=== PATIENT | female | born 1990 | race Caucasian/White ===

== ENCOUNTER 2019-06-13 02:39 | Emergency (ER) | payer BC, SELFPAY ==
--- NOTE | ~2019-06-13 | XR_ITS ---
EXAMINATION: XR chest 2V DATE: 06/13/2019 04:25 INDICATION: Dyspnea. Asthma. TECHNIQUE: PA and lateral views of the chest were obtained. COMPARISON: Chest CT dated 08/27/2017 FINDINGS: Normal lung volumes. No focal airspace opacities, pulmonary edema, pleural effusion or pneumothorax. The cardiomediastinal silhouette is normal. C5-C7 anterior spinal fusion with anterior plate and scre w fixation. IMPRESSION: 1. No acute cardiopulmonary disease. Reviewed, dictated and finalized at location A. LINE WORKER
[2019-06-13 02:41] VITALS: BP 133/89; PULSE 120; RESP 20; TEMP 36.5; O2SAT 100
--- NOTE | 2019-06-13 02:46 | ED.SOB ---
HPI - SOB/Dyspnea General Chief Complaint: Shortness of Breath/Dyspnea Stated Complaint: sob Time Seen by Provider: 06/13/19 02:46 Source: patient and RN notes reviewed Mode of arrival: other Limitations: no limitations History of Present Illness HPI Narrative: Pt is a 29 y/o female who presents to the ED with c/o SOB that began two days ago (06/11/19). Pt has a hx of anxiety and asthma. Pt states that she cannot seem to catch her breath. Pt took Flovent and used her Albuterol rescue inhaler, but with no relief of her sx. Pt is currently taking Cipro for her UTI. She notes that she feels dizzy whenever she breathes and she states that she is afraid to fall asleep. Pt denies any recent travel, heavy lifting, smoking, using a vape, and taking oral contraceptives. Pt denies being and she notes that she has not been sexually active in over two months. Pt also reports chest tightness pain, diaphoresis, and near syncope, but denies a fever, cough, and congestion. MD elicited complaint: shortness of breath Pertinent past history: asthma Onset (ago): day(s) (2) Timing: constant Relieving factors: nothing Known history of: asthma Associated symptoms: chest pain (tightness), diaphoresis, syncope (near) and other (dizziness) Treatment prior to arrival: other (Albuterol rescue inhaler) Related Data Home oxygen amount: none Allergies Allergy/AdvReac Type Severity Reaction Status Date / Time acetaminophen Allergy Unknown Unknown Verified 06/13/19 02:43 hydrocodone Allergy Unknown Unknown Verified 06/13/19 02:43 latex Allergy Unknown Unknown Verified 06/13/19 02:43 morphine Allergy Unknown Other Verified 06/13/19 02:43 pneumococcal vaccine Allergy Unknown Unknown Verified 06/13/19 02:43 Review of Systems Review of Systems: Narrative: CONSTITUTIONAL: Denies fever. ENT: Denies congestion. CARDIOVASCULAR: Reports chest tightness pain and diaphoresis. RESPIRATORY: Reports dyspnea. Denies cough. NEUROLOGIC: Reports near syncope and dizziness. All systems reviewed & are unremarkable except as noted in HPI and below PMFSH Past Medical History Medical History (Updated 06/13/19 @ 04:44 by Graciela Trujillo MD) Anxiety Asthma Depression DVT (deep venous thrombosis) Migraines, neuralgic Shingles UTI (urinary tract infection) Vertigo Surgical History Surgical History (Updated 06/13/19 @ 02:54 by Saira Bailey) H/O spinal fusion Family History Family History (Updated 12/02/17 @ 13:36 by DOCTOR UNKNOWN) Other Family history of arthritis Social History Social History (Updated 06/13/19 @ 03:00 by Saira Bailey) Smoking status: Never smoker Alcohol intake: current Gender identity (if verbalized by the patient): Female Exam Narrative: Exam Narrative: GENERAL: Well-appearing, well-nourished, and in no acute distress. Anxious and tremolous. HEAD: Normocephalic, atraumatic. EYES: PERRLA and EOMI. ENT: Nares clear, no rhinorrhea or epistaxis. Mucous membranes moist. NECK: Supple. CHEST: Coarse breath sounds, faint expiratory wheezing bilateral bases. No chest wall tenderness. HEART: Tachycardic with rhythm. No murmur heard. Normal peripheral pulses. ABDOMEN: Soft, nontender, nondistended, normal active bowel sounds. EXTREMITIES: Normal range of motion. No edema. SKIN: Warm, dry, no rash. NEURO: No focal deficits. Alert and oriented X3. Course Course Emergency Course: Patient evaluated for shortness of breath. At the time of initial assessment, ABCs are intact and vital signs are stable. She does have tachycardia, she is reporting chest pain, EKG with right axis deviation, but low risk Via Wells criteria for PE. Cannot use PERC criteria given patient's tachycardia. Patient was given a DuoNeb treatment, steroids with much improvement in her symptoms. Her troponin is normal. Given she has had symptoms over the past 2 days, I would suspect a troponin elevation if this were due to cardiac chest pain. Patient has a histo
--- NOTE | 2019-06-13 02:51 | ECG_ITS ---
Measurements Intervals [place] Rate: 98 P: 20 [place]: 145 QRS: 104 QRSD: 90 T: -17 QT: 324 QTc: 415 Interpretive Statements SINUS RHYTHM RIGHT AXIS DEVIATION BORDERLINE ST-T WAVE ABNORMALITY- INF/LAT LEADS BORDERLINE ECG Electronically Signed On 06-13-2019 7:14:29 SUPERINTENDENT OF GENERATION by Geraldo Iqbal D.O.
[2019-06-13 03:07] VITALS: PULSE 96; RESP 22
[2019-06-13] MEDS: IPRATROPIUM BR 0.02% INH SOLN 0.5 MG/2.5 ML VIAL INHALATION (03:09)
[2019-06-13] MEDS: ALBUTEROL SULFATE NEB 2.5 MG/0.5 ML INH 5 MG INHALATION (03:09)
[2019-06-13] MEDS: methylPREDNISolone SOD SUCC 125 MG VIAL IV PUSH (03:12)
[2019-06-13] MEDS: SODIUM CHLORIDE 0.9% IV 1,000 ML 999 ML IV CONT (03:13)
[2019-06-13 03:16] LABS: Basophils Absolute Auto 0.1 K/mm3 (0.0-0.1); Basophils Percent Auto 0.6 % (0.2-1.2); Eosinophils Absolute Auto 0.1 K/mm3 (0-0.3); Eosinophils Percent Auto 1.3 % (0-4.4); Hematocrit 46.8 % (37.0-47.0); Hemoglobin 15.4 g/dL (12.0-15.0); Immature Granulocyte Absolute 0.02 K/mm3 (0.00-0.031); Immature Granulocyte Percent A 0.3 % (0-0.5); Lymphocytes Absolute Auto 3.66 K/mm3 (0.9-3.2); Lymphocytes Percent Auto 46.3 % (18.3-44.2); Mean Corpuscular HGB Conc 32.9 g/dl (32-36); Mean Corpuscular Hemoglobin 28.6 pg (26-34); Mean Platelet Volume 10.4 fl (7.4-10.4); Monocytes Absolute Auto 0.4 K/mm3 (0.1-0.6); Monocytes Percent Auto 4.7 % (2.6-8.5); Neutrophils Absolute Auto 3.7 K/mm3 (1.3-6.7); Neutrophils Percent Auto 46.8 % (45.5-73.1); Platelet Count Result 269 k/mm3 (150-375); Red Blood Count 5.38 M/mm3 (4.2-5.4); Red Cell Distribution Width 12.3 % (11.5-14.5); White Blood Count 7.9 K/mm3 (4.5-10.0)
[2019-06-13] MEDS: KETOROLAC 15 MG/ML VIAL (*BKC) IV PUSH (03:16)
[2019-06-13 03:19] VITALS: PULSE 100; RESP 24
[2019-06-13 04:01] LABS: Blood Urea Nitrogen 11 mg/dL (7-17); Calcium 9.4 mg/dL (8.4-10.2); Carbon Dioxide 17 mmol/L (22-30); Chloride 104 mmol/L (98-107); Estimated Glomerular Filt Rate > 60; Glucose 107 mg/dL (65-105); Potassium 3.1 mmol/L (3.4-5.0); Sodium 139 mmol/L (137-145)
[2019-06-13 04:13] LABS: Troponin I < 0.012 ng/mL (0.000-0.034)
[2019-06-13 04:16] LABS: D Dimer 0.42 ug/mL (<0.48)
[2019-06-13 04:17] LABS: INR 1.1; Prothrombin Time 13.9 Seconds (11.1-14.7)
[2019-06-13 04:39] LABS: Partial Thromboplastin Time < 20.0 SECONDS (22.3-36.8)
[2019-06-13 05:03] VITALS: BP 114/75; PULSE 84; RESP 20; O2SAT 100
== END 2019-06-13 05:05 | disposition home or self-care (01) ==
PROVIDERS: Emergency Provider Emergency Medicine; PCP Obstetrics & Gynecology
DX: J45.901 Unspecified asthma with (acute) exacerbation (principal); F41.9 Anxiety disorder, unspecified; F32.9 Major depressive disorder, single episode, unspecified; Z87.440 Personal history of urinary (tract) infections
CPT/HCPCS: 36415; 71046; 80048; 84484; 85025; 85380; 85610; 85730; 93005; 94640; 96361; 96374; 96375; 99284; J1885; J2930; J7030

== ENCOUNTER 2019-06-22 10:43 | Emergency (ER) | payer BC, SELFPAY ==
[2019-06-22 10:53] VITALS: BP 114/71; PULSE 122; RESP 18; TEMP 36.9; O2SAT 100
--- NOTE | 2019-06-22 11:02 | ED.GENADULT ---
HPI - General Adult General Chief complaint: Upper Respiratory Infection Stated complaint: SOB/chest discomfort Time Seen by Provider: 06/22/19 11:04 Source: patient and RN notes reviewed Mode of arrival: ambulatory Limitations: no limitations History of Present Illness HPI narrative: This is a 29 years old female presented office for evaluation of shortness of breath since Jun 11; states she went to [place] [facility] for these symptoms and went back to [facility] the next day. Per patient, she reports slightly better when she was on three days of steroid; however her shortness of breathe persist. She had 2 chest x-ray with unremarkable finding. She understood she is supposed to see a human performance technologist for further evaluation and treatment of her lung condition however she is very symptomatic right now that she does not think she can wait another 2 weeks. Symptoms include short of breath at rest and worse with exertion. Denies wheezing or cough. She has been taking albuterol treatment and her Flovent. Denies sick contact. Admits to history of DVT however she is not currently on blood thinner. Denies history of PE in the past.She does not smoke. She denies recent surgery.She is not on any hormone medication. HPI - SOB/Dyspnea General Chief Complaint: Shortness of Breath/Dyspnea Stated Complaint: sob Time Seen by Provider: 06/13/19 02:46 Source: patient and RN notes reviewed Mode of arrival: other Limitations: no limitations History of Present Illness HPI Narrative: Pt is a 29 y/o female who presents to the ED with c/o SOB that began two days ago (06/11/19). Pt has a hx of anxiety and asthma. Pt states that she cannot seem to catch her breath. Pt took Flovent and used her Albuterol rescue inhaler, but with no relief of her sx. Pt is currently taking Cipro for her UTI. She notes that she feels dizzy whenever she breathes and she states that she is afraid to fall asleep. Pt denies any recent travel, heavy lifting, smoking, using a vape, and taking oral contraceptives. Pt denies being and she notes that she has not been sexually active in over two months. Pt also reports chest tightness pain, diaphoresis, and near syncope, but denies a fever, cough, and congestion. Related Data Home Medications Medication Instructions Recorded Confirmed alprazolam [Xanax] 0.5 mg PO BID PRN 06/22/19 06/22/19 escitalopram oxalate 10 mg PO DAILY 06/22/19 06/22/19 fluticasone propionate [Flovent 2 puff INHALATION Q12H 06/22/19 06/22/19 HFA] phentermine 37.5 mg PO DAILY 06/22/19 06/22/19 verapamil 40 mg PO BID 06/22/19 06/22/19 Allergies Allergy/AdvReac Type Severity Reaction Status Date / Time hydrocodone Allergy Unknown Itching Verified 06/22/19 11:00 latex Allergy Unknown Hives Verified 06/22/19 11:00 morphine Allergy Unknown Itching Verified 06/22/19 11:00 pneumococcal vaccine Allergy Unknown Other Verified 06/22/19 11:00 coconut Allergy Hives Verified 06/22/19 11:01 Review of Systems Review of Systems: Narrative: CONSTITUTIONAL: Denies fever or feeling ill ENT: Denies congestion or sore throat CARDIOVASCULAR: Denies chest pain RESPIRATORY: Denies cough or wheezing. Reports dyspnea GASTROINTESTINAL: Denies abdominal pain, nausea, vomiting, diarrhea. GENITOURINARY: Denies urinary symptoms or discharge SKIN: Denies rash MUSCULOSKELETAL: Denies acute back pain NEUROLOGIC: Denies lightheaded PMFSH Past Medical History Medical History Anxiety Asthma Depression DVT (deep venous thrombosis) Migraines, neuralgic Shingles UTI (urinary tract infection) Vertigo Surgical History Surgical History H/O spinal fusion Family History Family History Other Family history of arthritis Social History Social History Smoking status: N
[2019-06-22] MEDS: IPRATROPIUM BR 0.02% INH SOLN 0.5 MG/2.5 ML VIAL INHALATION (11:32)
[2019-06-22] MEDS: LEVALBUTEROL NEB 1.25 MG/3 ML INHALATION (11:32)
[2019-06-22 11:49] VITALS: PULSE 112; RESP 20; O2SAT 100
[2019-06-22 12:05] VITALS: O2SAT 100
== END 2019-06-22 12:05 | disposition short-term general hospital (02) ==
PROVIDERS: Emergency Provider Nurse Practitioner; PCP Obstetrics & Gynecology
DX: R06.02 Shortness of breath (principal); J45.20 Mild intermittent asthma, uncomplicated; F41.9 Anxiety disorder, unspecified; Z86.718 Personal history of other venous thrombosis and embolism
CPT/HCPCS: 94640; 99213; G0463

== ENCOUNTER 2019-06-22 12:30 | Emergency (ER) | payer BC, SELFPAY ==
--- NOTE | ~2019-06-22 | CT_ITS ---
EXAMINATION: CTA chest PE protocol EXAM DATE: 06/22/2019 14:16 INDICATION: History of DVT. Shortness of breath for 3 weeks. TECHNIQUE: Spiral CTA of the chest (pulmonary arteries) was performed with 100 cc Omnipaque 350 intr avenous contrast injection. Images were acquired during the pulmonary arterial phase. Coronal maxi mum intensity projection 3D-reconstructions were created by the technologist on dedicated workstation . Axial, coronal and sagittal reformatted images were reviewed. The dose-length product (DLP) for t his examination was 474.52 mGy-cm. The exposure was tailored according to patient size (auto mA exp osure control), and iterative reconstruction (ASIR) was used as additional dose reduction technique. Comparison is made to prior examination from 08/27/2017. FINDINGS: Pulmonary arteries are well opacified and without intraluminal filling defects. Dependent vague groundglass opacity, atelectasis most likely. No thoracic aortic dissection. There are no p leural or pericardial effusions. Tracheobronchial tree is patent. There is no mediastinal, hilar or axillary lymphadenopathy. There is no pneumothorax. Heart normal in size. No evidence of cor onary arterial calcification. Upper abdomen is unremarkable. There is thoracic spondylosis without osteoblastic or osteolytic lesions identified. IMPRESSION: 1. No pulmonary emboli. 2. Dependent groundglass opacity most likely atelectasis. Reviewed, dictated and finalized at location A. RVISOR SOLDER MAKING
--- NOTE | 2019-06-22 12:37 | ED.SOB ---
HPI - SOB/Dyspnea General Chief Complaint: Shortness of Breath/Dyspnea Stated Complaint: SOB, sent from Time Seen by Provider: 06/22/19 12:36 Source: patient and RN notes reviewed Mode of arrival: ambulatory Limitations: no limitations History of Present Illness HPI Narrative: A 29 y/o female presents to the ED from with worsening SOB for the past 3 weeks. She states that she has a hx of asthma but that it doesn't feel like a typical asthma flare up. She reports some associated mild CP. She notes that she has a hx of a DVT but denies being on any BT's at this time. She also denies any cough, wheezes, fevers, chills, N/V/D, or ABD pain. MD elicited complaint: shortness of breath Pertinent past history: asthma and DVT Onset (ago): week(s) (3) Timing: progressively worsening Known history of: asthma and DVT Associated symptoms: chest pain (mild) Related Data Home Medications Medication Instructions Recorded Confirmed alprazolam [Xanax] 0.5 mg PO BID PRN 06/22/19 06/22/19 escitalopram oxalate 10 mg PO DAILY 06/22/19 06/22/19 fluticasone propionate [Flovent 2 puff INHALATION Q12H 06/22/19 06/22/19 HFA] phentermine 37.5 mg PO DAILY 06/22/19 06/22/19 verapamil 40 mg PO BID 06/22/19 06/22/19 Allergies Allergy/AdvReac Type Severity Reaction Status Date / Time hydrocodone Allergy Unknown Itching Verified 06/22/19 13:20 latex Allergy Unknown Hives Verified 06/22/19 13:20 morphine Allergy Unknown Itching Verified 06/22/19 13:20 pneumococcal vaccine Allergy Unknown Other Verified 06/22/19 13:20 coconut Allergy Hives Verified 06/22/19 13:20 Review of Systems Review of Systems: All systems reviewed & are unremarkable except as noted in HPI and below Constitutional: Constitutional: Denies chills and Denies fever(s) Cardiovascular: Cardiovascular: Reports chest pain (mild) Respiratory: Respiratory: Denies cough, Reports dyspnea and Denies wheezing Gastrointestinal: Gastrointestinal: Denies abdominal pain, Denies diarrhea, Denies nausea and Denies vomiting COUNTS INCLUDE 234 BEDS AT THE [facility] Past Medical History Medical History Anxiety Asthma Depression DVT (deep venous thrombosis) Increasing shortness of breath Migraines, neuralgic Shingles UTI (urinary tract infection) Vertigo Surgical History Surgical History H/O spinal fusion x2. Family History Family History Other Family history of arthritis Social History Social History Smoking status: Never smoker Alcohol intake: current Gender identity (if verbalized by the patient): Female Exam Narrative: Exam Narrative: GENERAL: Well-appearing, well-nourished, and in no acute distress. HEAD: Normocephalic, atraumatic. EYES: PERRLA and EOMI. ENT: Nares clear, no rhinorrhea or epistaxis. Mucous membranes moist. NECK: Supple. CHEST: Clear to auscultation. No respiratory distress. HEART: Regular rate and rhythm. No murmur heard. Normal peripheral pulses. EXTREMITIES: Normal range of motion. No edema. SKIN: Warm, dry, no rash. NEURO: No focal deficits. Alert and oriented x3. PSYCH: Normal mood and affect. Course Course Emergency Course: Inform patient about her lab work, CT findings. At this time I do not see any evidence of pneumonia or blood clots. Her cause of shortness of breath could be either asthma or anxiety. Patient states that she has been using her inhalers. I recommended to follow-up with her primary doctor or pulmonology. At this time she is requesting prednisone. Vital Signs Vital signs: Vital Signs Temperature 36.7 C 06/22/19 13:14 Pulse Rate 100 06/22/19 13:14 Respiratory Rate 15 06/22/19 13:14 Blood Pressure 115/83 06/22/19 13:14 Pulse Oximetry 100 06/22/19 13:14 Temperature 36.9 C 06/22/19 13:25 Pulse Rate 100 06/22/19 13:14 Respiratory Rate 15
--- NOTE | 2019-06-22 12:45 | ECG_ITS ---
Measurements Intervals [place] Rate: 109 P: 17 [place]: 134 QRS: 81 QRSD: 85 T: -30 QT: 304 QTc: 410 Interpretive Statements SINUS TACHYCARDIA POSSIBLE LEFT ATRIAL ENLARGEMENT BORDERLINE ST-T WAVE ABNORMALITY- INFERIOR LEADS BASELINE ARTIFACT- I, III, V4-V6 ABNORMAL ECG Electronically Signed On 06-22-2019 15:42:36 TAG STRINGER by Geraldo Iqbal D.O.
--- NOTE | 2019-06-22 13:06 | PC.NURSE ---
Called Matilde Juan to start IV for this pt. aMtilde stated it will be around 30 min before she is able to get here. I informed Emily, my charge nurse
[2019-06-22 13:14] VITALS: BP 115/83; PULSE 100; RESP 15; TEMP 36.7; O2SAT 100
[2019-06-22 13:25] VITALS: TEMP 36.9
[2019-06-22 13:54] LABS: Basophils Absolute Auto 0.1 K/mm3 (0.0-0.1); Basophils Percent Auto 0.6 % (0.2-1.2); Eosinophils Absolute Auto 0.1 K/mm3 (0-0.3); Eosinophils Percent Auto 1.2 % (0-4.4); Hematocrit 48.1 % (37.0-47.0); Hemoglobin 16.3 g/dL (12.0-15.0); Immature Granulocyte Absolute 0.02 K/mm3 (0.00-0.031); Immature Granulocyte Percent A 0.2 % (0-0.5); Lymphocytes Absolute Auto 3.49 K/mm3 (0.9-3.2); Lymphocytes Percent Auto 37.3 % (18.3-44.2); Mean Corpuscular HGB Conc 33.9 g/dl (32-36); Mean Corpuscular Hemoglobin 29.1 pg (26-34); Mean Corpuscular Volume 85.7 fl (80-100); Mean Platelet Volume 10.2 fl (7.4-10.4); Monocytes Absolute Auto 0.5 K/mm3 (0.1-0.6); Monocytes Percent Auto 5.7 % (2.6-8.5); Neutrophils Absolute Auto 5.1 K/mm3 (1.3-6.7); Platelet Count Result 288 k/mm3 (150-375); Red Blood Count 5.61 M/mm3 (4.2-5.4); Red Cell Distribution Width 12.6 % (11.5-14.5); White Blood Count 9.4 K/mm3 (4.5-10.0)
[2019-06-22 14:04] LABS: Alanine Aminotransferase 26 U/L (4-35); Albumin Level 4.5 g/dL (3.5-5.1); Alkaline Phosphatase 57 U/L (38-126); Aspartate Amino Transferase 25 U/L (14-36); Bilirubin,Total 1.1 mg/dL (0.2-1.3); Blood Urea Nitrogen 8 mg/dL (7-17); Calcium 9.7 mg/dL (8.4-10.2); Carbon Dioxide 25 mmol/L (22-30); Chloride 99 mmol/L (98-107); Estimated CRCL calculation 80 ml/min; Estimated Glomerular Filt Rate > 60; Glucose 83 mg/dL (65-105); Potassium 3.4 mmol/L (3.4-5.0); Sodium 138 mmol/L (137-145)
[2019-06-22 14:16] LABS: D Dimer 0.27 ug/mL (<0.48)
== END 2019-06-22 15:16 | disposition home or self-care (01) ==
PROVIDERS: Emergency Provider Family Medicine; PCP Obstetrics & Gynecology
DX: R06.02 Shortness of breath (principal); Z86.718 Personal history of other venous thrombosis and embolism; J45.909 Unspecified asthma, uncomplicated; Z87.440 Personal history of urinary (tract) infections; Z98.1 Arthrodesis status
CPT/HCPCS: 36415; 71275; 80053; 81025; 85025; 85380; 93005; 99284; Q9967

== ENCOUNTER 2019-08-26 12:28 | Outpatient (CLI) | payer BC, SELFPAY ==
[2019-08-30 08:20] LABS: Immunoglobulin E 36 kU/L (<=114)
[2019-08-30 23:46] LABS: Immunoglobulin G, Serum 1000 mg/dL (600-1640); Immunoglobulin G1 395 mg/dL (382-929); Immunoglobulin G2 442 mg/dL (241-700); Immunoglobulin G3 34 mg/dL (22-178); Immunoglobulin G4 98.8 mg/dL (4.0-86.0)
== END 2019-08-26 12:29 | disposition home or self-care (01) ==
PROVIDERS: PCP Internal Medicine; Visit Provider Internal Medicine Critical Care Medicine
DX: J45.909 Unspecified asthma, uncomplicated (principal); B99.9 Unspecified infectious disease
CPT/HCPCS: 36415; 82784; 82785; 82787; 86606

== ENCOUNTER 2019-09-14 09:53 | Outpatient (CLI) | payer BC, SELFPAY ==
--- NOTE | 2019-09-14 17:46 | WPDPFTINT ---
PFT Interpretation PFT Interpretation: DOS: 09/14/2019 REQUESTING: Dr Fuller REASON FOR TESTING: Asthma PULMONARY FUNCTION TESTS Results are reproducible and reliable. Spirometry: FEV1 102%, normal. FVC 100%, normal. FEV1% normal. FEF 25-75% is 91%, normal and increased 24% with bronchodilator. Lung volumes: TLC 94%. RV 60%, normal. Airway resistance increased 169%. Diffusion: DLCO 73%, mildly decreased. Flow volume loop: Normal. IMPRESSION: Mild small airways pattern with good response to bronchodilator and mild increase in airway resistance which is consistent with asthma. The mild decrease in DLCO is not a feature of asthma. FeNO 27 ppb, mildly increased, consistent with increased airway inflammation. Vida Fuller MD
== END 2019-09-14 09:54 | disposition home or self-care (01) ==
PROVIDERS: PCP Internal Medicine; Visit Provider Internal Medicine Critical Care Medicine
DX: J45.909 Unspecified asthma, uncomplicated (principal)
CPT/HCPCS: 95012

== ENCOUNTER 2020-02-17 09:03 | Outpatient (CLI) | payer BC, SELFPAY ==
--- NOTE | ~2020-02-17 | MR_ITS ---
EXAMINATION: MR brain/brain stem wo/w con DATE: 02/17/2020 11:58 INDICATION: Unspecified convulsions. TECHNIQUE: Magnetic resonance imaging (MRI) of the brain and brainstem was performed without and with 20 mL MultiHance intravenous contrast. Sequences included sagittal and axial T1-weighted FSE, axial diffusion-weighted FS EPI, axial T2*-weighted GRE, axial T2-weighted FLAIR Propeller, axial T2-weight ed Propeller, coronal T2-weighted FLAIR, and coronal T1-weighted 3D FSPGR. Postcontrast axial and cor onal T1-weighted FSE was obtained. Apparent diffusion coefficient (ADC) maps were created. COMPARISON: Head CT 12/19/2018 FINDINGS: The hippocampi are normal and symmetric. 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 There are scattered areas of nonspecific increased T2-weighted signal intensity in the cerebral white matter. There is no acute ischemic infarct or intracranial hemorrhage. The ventricles are normal in size. The orbits are normal. There is mild mucosal thickening in sphenoid sinus. The m astoid air cells are normal. IMPRESSION: 1. Mild nonspecific cerebral white matter disease. The differential diagnosis includes premature pharmacy intake coordinator gabrielle small vessel ischemic disease (especially if the patient has cardiovascular risk factors), demyel inating disease such as multiple sclerosis, drug abuse, vasculitis, or reactive astrocytosis (gliosis ) secondary to nonspecific etiology. Reviewed, dictated and finalized at location A. IMPRESSION: 1. Mild nonspecific cerebral white matter disease. The differential diagnosis i ncludes premature chronic small vessel ischemic disease (especially if the huang ent has cardiovascular risk factors), demyelinating disease such as multiple sc lerosis, drug abuse, vasculitis, or reactive astrocytosis (gliosis) secondary t o nonspecific etiology.
[2020-02-17 11:25] LABS: Estimated Glomerular Filt Rate > 60
--- NOTE | 2020-02-20 11:21 | WPDNEUROLOGY ---
Neurology EEG Report General Information Date of Study: 02/17/20 TEST eeg DIAGNOSIS unspecified convulsion CONDITION OF RECORDING awake.drowsy and sleep EEG NUMBER [id number] CLINICAL HISTORY patient reported that for about the last 6 months she is experiencing episodic eyes deviation along with foaming at the mouth. She did not report any loss of consciousness but she mentions that the episodes can last from anywhere [id number] to 2hours EEG DESCRIPTION basic resting occipital frequency consists of large amount of well-organized low to medium voltage 9 to 11 hertz per second alpha admixed with low-voltage 15 to 18 hertz per second beta.photic stimulation produced normal drive hyperventilation not done IMPRESSION normal EEG
== END 2020-02-17 09:04 | disposition home or self-care (01) ==
PROVIDERS: PCP Internal Medicine; Visit Provider Nurse Practitioner
DX: R56.9 Unspecified convulsions (principal)
CPT/HCPCS: 70553; 95816; A9577

== ENCOUNTER 2020-02-27 08:42 | Outpatient (CLI) | payer BC, SELFPAY | END 2020-02-27 08:43 | disposition home or self-care (01) | PROVIDERS: PCP Internal Medicine; Visit Provider Nurse Practitioner | DX: R63.5 Abnormal weight gain (principal) | CPT/HCPCS: 36415; 84443 ==

== ENCOUNTER 2020-08-31 14:09 | Outpatient (CLI) | payer BC, SELFPAY ==
--- NOTE | ~2020-08-31 | XR_ITS ---
XR knee RT 3V 08/31/2020 14:31 INDICATION: Right knee pain PROCEDURE: 3 views right knee COMPARISON: No prior studies for comparison. FINDINGS: Fracture, dislocation or subluxation is not identified. The soft tissues appear within norm al limits. No foreign bodies are identified. IMPRESSION: 1: NO ACUTE BONE OR JOINT ABNORMALITY IDENTIFIED. Reviewed, dictated and finalized at location B.
== END 2020-08-31 14:10 | disposition home or self-care (01) ==
LOC: ANHIMG 14:12
PROVIDERS: PCP Internal Medicine; Visit Provider Internal Medicine
DX: M25.561 Pain in right knee (principal)
CPT/HCPCS: 73562

== ENCOUNTER 2022-10-13 10:00 | Emergency (ER) | payer OTHER, SELFPAY ==
[2022-10-13] VITALS (21 sets, daily range): BP systolic 97–121; BP diastolic 64–95; PULSE 86–98; RESP 16–18; TEMP 36.7; O2SAT 94–100
--- NOTE | 2022-10-13 10:16 | ECG_ITS ---
Measurements Intervals [place] Rate: 94 P: 56 [place]: 149 QRS: 99 QRSD: 84 T: 9 QT: 327 QTc: 409 Interpretive Statements SINUS RHYTHM NONSPECIFIC T-WAVE ABNORMALITY BORDERLINE ECG COMPARED TO ECG 06/22/2019 12:41:39 HEART RATE HAS DECREASED T-WAVE ABNORMALITY NOW PRESENT Electronically Signed On 10-13-2022 17:28:26 CDT by Jersey Allred M.D.
--- NOTE | 2022-10-13 10:35 | ED.GENADULT ---
HPI - General Adult General Chief complaint: Abdominal Pain Stated complaint: abdominal pain and vomiting Time Seen by Provider: 10/13/22 10:11 History of Present Illness HPI narrative: Clementina is a 32F with a PMH of recurrent acute pancreatitis and mood disorder that presented to the ED with abdominal pain. For the last few days she has had several episodes of watery diarrhea and non-bloody vomiting. After this started she had abdominal pain that radiated to her mid back. It was not helped with her home oxycodone. She has only been able to hold down water. She has had her appendix and gallbladder removed. Related Data Home Medications Medication Instructions Recorded Confirmed ipratropium 0.5 mg-albuterol 3 mg 3 ml inhalation Q4H PRN Wheezing 08/31/20 10/13/22 (2.5 mg base)/3 mL nebulization soln duloxetine 60 mg capsule,delayed See Rx Instructions PO DAILY 04/05/21 10/13/22 release (Cymbalta) alprazolam 1 mg tablet 0.5 mg PO BID PRN anxiety 10/13/22 10/13/22 prochlorperazine maleate 10 mg 10 mg PO PRN PRN Nausea 10/13/22 10/13/22 tablet quetiapine 50 mg tablet 50 mg PO HS 10/13/22 10/13/22 Allergies Allergy/AdvReac Type Severity Reaction Status Date / Time [id number] Antimigraine Allergy Severe passout Verified 10/13/22 10:12 Agents coconut Allergy Mild Hives Verified 10/13/22 10:12 COVID-19 vaccine, mRNA, Allergy Mild hives, Verified 10/13/22 10:12 [id number], L chest pain, SOB hydrocodone Allergy Mild Itching Verified 10/13/22 10:12 latex Allergy Mild Hives Verified 10/13/22 10:12 morphine Allergy Mild Itching Verified 10/13/22 10:12 pneumococcal vaccine Allergy Mild Other Verified 10/13/22 10:12 shrimp AdvReac Mild Hives Verified 10/13/22 10:12 Review of Systems Review of Systems: All systems reviewed & are unremarkable except as noted in HPI and below PMFSH Past Medical History Medical History Anxiety Asthma Depression DVT (deep venous thrombosis) Increasing shortness of breath Migraines, 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 H/O spinal fusion x2. Family History Family History Other Family history of arthritis Social History Social History Tobacco type: e-cigarettes/vaping Second hand tobacco smoke exposure: No Smoking end date: 05/04/19 Alcohol intake: current Alcohol use details: Social Substance use: current Substance use type: marijuana Gender identity (if verbalized by the patient): Female Exam Const: General: healthy appearing, no acute distress and alert; No confusion Nutritional Appearance: well nourished Orientation/consciousness: patient oriented x3 Limitations: no limitations HENMT: Head: normal to inspection Ears: external ears normal Eyes: Conjunctivae: conjunctivae normal Pupils: Equal, round and reactive pupils present Neck: Neck: normal visual inspection Chest: Chest palpation & inspection: normal inspection of the chest Resp: Effort & Inspection: normal respiratory effort Auscultation: clear to auscultation bilaterally Cardio: Rate: regular rate Rhythm: regular rhythm GI: Inspection: non-distended GI Palp: Yes Soft to palpation, Yes Tenderness to palpation present (GI) (epigastric region), No Guarding due to palpation present (GI), No Rigid due to palpation and No Palpable mass present Back/Spine/Pelvis: Back: no CVA tenderness Skin: General skin exam: normal color Neuro: General: patient oriented x3 and moves all extremities Cranial nerves: Yes Nystagmus not present Course Course Emergency Course: Ord
[2022-10-13] MEDS: LACTATED RINGERS 1,000 ML 999 ML IV CONT ×2 (10:46→11:40)
[2022-10-13] MEDS: diphenhydrAMINE HCl INJ 50 MG/ML VIAL 25 MG IV PUSH (10:48)
[2022-10-13] MEDS: MORPHINE SULFATE (*CRX) 4 MG/ML INJ IV PUSH (10:48)
[2022-10-13 10:54] LABS: INR 1.1; Prothrombin Time 11.8 Seconds (9.50-12.10)
[2022-10-13 10:57] LABS: Alanine Aminotransferase 34 U/L (14-59); Albumin Level 3.6 g/dL (3.4-5.0); Alkaline Phosphatase 66 U/L (46-116); Anion Gap 11 mmol/L (8-16); Aspartate Amino Transferase 32 U/L (15-37); Bilirubin,Total 0.8 mg/dL (0.00-1.00); Blood Urea Nitrogen 14 mg/dL (7-18); Carbon Dioxide 25 mmol/L (21-32); Chloride 101 mmol/L (98-108); Estimated CRCL calculation 107 ml/min; Estimated Glomerular Filt Rate > 60; Glucose 95 mg/dL (70-99); Lipase 20 U/L (16-77); Osmolality Calculated 284 mOsm/kg (285-295); Potassium 3.6 mmol/L (3.5-5.1); Sodium 137 mmol/L (136-145); Total Protein 7.4 g/dL (6.4-8.2)
[2022-10-13 11:00] LABS: Lactic Acid Reflex 0.8 mmol/L (0.4-2.0); Troponin I < 4.0 ng/L (0.00-60.4)
[2022-10-13] MEDS: MAG HYDROX/ALUMINUM HYD/SIMETH 30 ML, PHENobarb/HYOSCY/ATROPINE/SCOP 32.4 MG, LIDOCAINE... PO (11:23)
--- NOTE | 2022-10-13 11:27 | PC.NURSE ---
PT IS LYING ON STRETCHER IN EXAM ROOM WITH SIG OTHER AT BEDSIDE. PT REPORTS HER PAIN IS COMING BACK, WOULD LIKE SOMETHING TO DRINK, AND REPORTS SHE IS UNABLE TO URINATE AT THIS TIME. WILL CONTINUE TO MONITOR. PT IS AWARE OF NEED FOR URINE SPECIMEN. NAD NOTED.
--- NOTE | 2022-10-13 12:49 | PC.NURSE ---
PT UP TO RR AT THIS TIME WITHOUT DIFFICULTY. NAD NOTED. SIG OTHER REMAINS AT BEDSIDE. WILL CONTINUE TO MONITOR.
[2022-10-13 12:54] LABS: Appearance Urine Clear (Clear); Bilirubin Urine Negative (Negative); Blood Urine Negative (Negative); Color Urine Yellow (Yellow); Glucose Urine UA Negative (Negative); Ketones Urine 1+ (Negative); Leukocyte Esterase Ur Negative LEU/UL (Negative); Nitrate Urine Negative (Negative); Protein Urine Negative (Negative); Specific Grav Ur <= 1.005 (1.010-1.020); Urobilinogen Urine 0.2 mg/dL (0.2-1.0)
[2022-10-13 12:55] LABS: Pregnancy On Board Control Positive; Urine Pregnancy Test Negative
[2022-10-13 13:12] LABS: Add Urine Microscopic? YES; RBC Urine None seen /hpf (0-2); WBC Urine None seen /hpf (0-3)
[2022-10-13 13:13] LABS: Bacteria Urine None seen /hpf; Squamous Epithelial Cell Urine Occasional /hpf (Few)
== END 2022-10-13 13:25 | disposition home or self-care (01) ==
PROVIDERS: Emergency Provider Family Medicine
DX: K52.9 Noninfective gastroenteritis and colitis, unspecified (principal); F41.9 Anxiety disorder, unspecified; F32.A Depression, unspecified; F17.290 Nicotine dependence, other tobacco product, uncomplicated; Z86.718 Personal history of other venous thrombosis and embolism
CPT/HCPCS: 36415; 80053; 81001; 81025; 83605; 83690; 84484; 85610; 93005; 96361; 96374; 96375; 99284; A9270; J1200; J2270; J7120

== ENCOUNTER 2023-04-06 05:51 | Emergency (ER) | payer OTHER, SELFPAY ==
--- NOTE | ~2023-04-06 | CT_ITS ---
Non-contrast CT scan of the Abdomen and Pelvis Clinical indication: Abdominal pain Technique: 2.5 mm axial scans were obtained through the abdomen and pelvis without intravenous or or al contrast. Dose reduction technique was used on this scan by utilizing automated exposure control a nd iterative reconstruction technique. The dose-length product (DLP) was 1309.17 mGy-cm. Findings: Images through the lung bases reveal no abnormalities. 4 mm nonobstructing left renal stone present. No right renal stone. No ureteral stones or hydronephro sis on either side. The liver, spleen, pancreas, and adrenals appear normal. Cholecystectomy clips are present. There is no aortic aneurysm. Vascular stent present within the right common iliac vein extending into the IVC. There is no evidence of bowel obstruction. Large stool burden suggests constipation. Appendix not aury warren delineated. Images through the pelvis were performed. There is no evidence of ascites or lymphadenopathy. Urinary bladder unremarkable. No pelvic mass. Impression: 4 mm nonobstructing left renal stone. Prominent stool suggests constipation. Correlate clinically. Reviewed, dictated and finalized at [facility]. [employer] Impression: 4 mm nonobstructing left renal stone. Prominent stool suggests constipation. Correlate clinically.
--- NOTE | 2023-04-06 05:58 | ECG_ITS ---
Measurements Intervals [place] Rate: 90 P: 48 [place]: 144 QRS: 93 QRSD: 87 T: 73 QT: 379 QTc: 466 Interpretive Statements SINUS RHYTHM BORDERLINE RIGHT AXIS DEVIATION [QRS AXIS > 90] NONSPECIFIC T-WAVE ABNORMALITY ABNORMAL ECG COMPARED TO ECG 10/13/2022 10:27:19 NO SIGNIFICANT CHANGES Electronically Signed On 04-06-2023 15:33:43 PUBLIC HEALTH TECHNOLOGIST by Salvatore Young M.D.
[2023-04-06 06:00] VITALS: BP 95/71; PULSE 106; RESP 20; TEMP 36.6; O2SAT 99
--- NOTE | 2023-04-06 06:04 | ED.GENADULT ---
HPI - General Adult General Chief complaint: Abdominal Pain <Dylan Wheatley DO - Last Filed: 04/27/23 13:15> Stated complaint: flank pain <Dylan Wheatley DO - Last Filed: 04/27/23 13:15> Time Seen by Provider: 04/06/23 05:58 <Dylan Wheatley DO - Last Filed: 04/27/23 13:15> History of Present Illness HPI narrative: Clementina jacobs s a 33F with a PMH of chronic pancreatitis, cholecystectomy, anxiety, asthma, and migraines that presented to the ED with epigastric pain. It started last night and is getting worse. It is a stabbing pain that radiates to the back and is associated with nausea but no vomiting, fevers or diarrhea. She has had occasional lightheadedness but no syncope or dyspnea. Of note when she woke up this morning her voice was horse. She is allergic to contrast dye. She is allergic to zofran as well. She can only tolerate opiates if she has benadryl. <Dylan Wheatley DO - Last Filed: 04/27/23 13:15> Clementina jacobs s a 33F with a PMH of chronic pancreatitis, ulcerative colitis, s/p cholecystectomy, anxiety, asthma, and migraines that presented to the ED with epigastric pain. It started last night and is getting worse. It is a stabbing pain that radiates to the back and is associated with nausea but no vomiting, fevers or diarrhea. She has had occasional lightheadedness but no syncope or dyspnea. Of note when she woke up this morning her voice was horse. She is allergic to contrast dye. She is allergic to zofran as well. She can only tolerate opiates if she has benadryl. <Tito Oliver MD - Last Filed: 04/06/23 08:09> Related Data Home medications: Home Medications Medication Instructions Recorded Confirmed duloxetine 60 mg capsule,delayed See Rx Instructions PO DAILY 04/05/21 04/06/23 release (Cymbalta) prochlorperazine maleate 10 mg 10 mg PO PRN PRN Nausea 10/13/22 04/06/23 tablet quetiapine 50 mg tablet 50 mg PO HS 10/13/22 04/06/23 buspirone 15 mg tablet 15 mg PO DAILY 04/06/23 04/06/23 omeprazole 40 mg capsule,delayed 40 mg PO DAILY 04/06/23 04/06/23 release quetiapine 25 mg tablet 25 mg PO HS 04/06/23 04/06/23 <Dylan Wheatley DO - Last Filed: 04/27/23 13:15> Allergies/adverse reactions: Allergies Allergy/AdvReac Type Severity Reaction Status Date / Time [id number] Antimigraine Allergy Severe passout Verified 04/06/23 07:59 Agents coconut Allergy Mild Hives Verified 04/06/23 07:59 COVID-19 vaccine, mRNA, Allergy Mild hives, Verified 04/06/23 07:59 [id number], L chest pain, SOB hydrocodone Allergy Mild Itching Verified 04/06/23 07:59 latex Allergy Mild Hives Verified 04/06/23 07:59 morphine Allergy Mild Itching Verified 04/06/23 07:59 pneumococcal vaccine Allergy Mild Other Verified 04/06/23 07:59 shrimp AdvReac Mild Hives Verified 04/06/23 07:59 <Dylan Wheatley DO - Last Filed: 04/27/23 13:15> Review of Systems Review of Systems: All systems reviewed & are unremarkable except as noted in HPI and below <Dylan Wheatley DO - Last Filed: 04/27/23 13:15> [facility] Past Medical History Medical History: Medical History Anxiety Asthma Depression DVT (deep venous thrombosis) Increasing shortness of breath Migraines, 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 <Dylan Wheatley DO - Last Filed: 04/27/23 13:15> Family History Family History: Family History Other Family history of arthritis <Dylan Wheatley DO - Last Filed: 04/27/23 13:15> Social History Social Histo
[2023-04-06 06:21] LABS: Basophils Absolute Auto 0.02 K/mm3 (0.00-0.10); Basophils Percent Auto 0.3 % (0.0-1.0); Eosinophils Absolute Auto 0.12 K/mm3 (0.02-0.50); Hematocrit 41.7 % (35.0-49.0); Hemoglobin 13.7 g/dL (12.0-15.0); Immature Granulocyte Absolute 0.01 K/mm3 (0.00-0.00); Immature Granulocyte Percent A 0.2 % (0.0-0.0); Lymphocytes Absolute Auto 0.93 K/mm3 (1.10-4.50); Lymphocytes Percent Auto 15.2 % (18.0-42.0); Mean Corpuscular HGB Conc 32.9 g/dL (32.0-36.0); Mean Corpuscular Hemoglobin 28.7 pg (27.0-31.0); Mean Corpuscular Volume 87.2 fL (78.0-102.0); Mean Platelet Volume 9.9 fl (9.2-11.8); Monocytes Absolute Auto 0.29 K/mm3 (0.10-0.90); Monocytes Percent Auto 4.7 % (2.0-11.0); Neutrophils Absolute Auto 4.8 K/mm3 (1.7-7.2); Neutrophils Percent Auto 77.6 % (50.0-70.0); Platelet Count Result 208 K/mm3 (150-420); Red Blood Count 4.78 M/mm3 (4.20-5.40); Red Cell Distribution Width 12.9 % (11.6-14.4); White Blood Count 6.1 K/mm3 (4.8-10.8)
[2023-04-06] MEDS: diphenhydrAMINE HCl INJ 50 MG/ML VIAL IV PUSH (06:33)
[2023-04-06] MEDS: LACTATED RINGERS 1,000 ML 999 ML IV CONT (06:35)
[2023-04-06] MEDS: MORPHINE SULFATE (*CRX) 4 MG/ML INJ IV PUSH (06:35)
[2023-04-06 06:38] LABS: Alanine Aminotransferase 33 U/L (14-59); Albumin Level 3.6 g/dL (3.4-5.0); Alkaline Phosphatase 62 U/L (46-116); Anion Gap 7 mmol/L (8-16); Aspartate Amino Transferase 18 U/L (15-37); Bilirubin,Total 0.4 mg/dL (0.00-1.00); Blood Urea Nitrogen 7 mg/dL (7-18); CRP < 0.5 mg/dL (0.0-0.9); Calcium 8.1 mg/dL (8.5-10.1); Carbon Dioxide 29 mmol/L (21-32); Chloride 102 mmol/L (98-108); Estimated CRCL calculation 85 ml/min; Estimated Glomerular Filt Rate > 60; Glucose 113 mg/dL (70-99); Lipase 42 U/L (16-77); Osmolality Calculated 285 mOsm/kg (285-295); Potassium 3.6 mmol/L (3.5-5.1); Sodium 138 mmol/L (136-145); Total Protein 6.7 g/dL (6.4-8.2); Troponin I < 4.0 ng/L (0.00-60.4)
[2023-04-06 06:40] LABS: Lactic Acid Reflex 1.7 mmol/L (0.4-2.0)
[2023-04-06 06:43] VITALS: BP 124/86; RESP 20; O2SAT 97
[2023-04-06 06:56] LABS: Influenza A QL RT-PCR Negative (Negative); Influenza B QL RT-PCR Negative (Negative); SARS-CoV-2 RNA PCR Negative (Negative)
[2023-04-06 06:57] LABS: RSV RNA, RT-PCR Negative (Negative)
[2023-04-06 06:57] LABS: Appearance Urine Clear (Clear); Bilirubin Urine Negative (Negative); Blood Urine Negative (Negative); Color Urine Light Yellow (Yellow); Glucose Urine UA Negative (Negative); Ketones Urine Negative (Negative); Leukocyte Esterase Ur Negative LEU/UL (Negative); Nitrate Urine Negative (Negative); Protein Urine Negative (Negative); Specific Grav Ur 1.015 (1.010-1.020); Urobilinogen Urine 0.2 mg/dL (0.2-1.0); pH Urine 8.5 (5.0-8.0)
[2023-04-06 06:59] LABS: Pregnancy On Board Control Positive; Urine Pregnancy Test Negative
[2023-04-06 07:02] LABS: Add Urine Microscopic? NO
[2023-04-06 08:12] VITALS: BP 107/77; PULSE 78; RESP 20; TEMP 36.7; O2SAT 98
== END 2023-04-06 08:37 | disposition home or self-care (01) ==
PROVIDERS: Emergency Provider Family Medicine
DX: K51.90 Ulcerative colitis, unspecified, without complications (principal); K59.00 Constipation, unspecified; F17.290 Nicotine dependence, other tobacco product, uncomplicated; Z79.899 Other long term (current) drug therapy; Z86.718 Personal history of other venous thrombosis and embolism; Z20.822 Contact with and (suspected) exposure to COVID-19
CPT/HCPCS: 36415; 74176; 80053; 81003; 81025; 83605; 83690; 84484; 85025; 86140; 87637; 93005; 96361; 96374; 96375; 99283; 99284; J1200; J2270; J7120

== ENCOUNTER 2023-06-13 01:22 | Emergency (ER) | payer OTHER, SELFPAY ==
[2023-06-13 01:29] VITALS: O2SAT 97
[2023-06-13 01:30] VITALS: BP 125/88; PULSE 89; RESP 20; TEMP 37; O2SAT 98
--- NOTE | 2023-06-13 01:38 | ED.ASTHMA ---
HPI - Asthma General Chief Complaint: Asthma Stated Complaint: Upper Respiratory Time Seen by Provider: 06/13/23 01:36 Source: patient Mode of arrival: ambulatory Limitations: no limitations History of Present Illness HPI Narrative: patient is a 33-year-old female with significant past medical history that presents today for URI and asthma flare. Patient has upper respiratory infection and was seen in urgent care 1 week ago and was given a steroid and prednisone for home. She states that she still has wheezing and has been using her albuterol inhaler and this is not doing very much for her. She states that she still has the upper respiratory infection and is still wheezing pretty bad. She was not given an antibiotic. MD complaint: asthma attack , shortness of breath and wheezing Onset (ago): week(s) Severity: moderate Context: recent URI, allergen exposure and other Associated symptoms: productive cough, dry cough and fever Asthma History: childhood onset and history of frequent attacks Treatments Prior to Arrival: inhaled bronchodilator and inhaled steroid Related Data Current Asthma Therapy: inhaled bronchodilator and recent oral steroid Home Medications Medication Instructions Recorded Confirmed duloxetine 60 mg capsule,delayed See Rx Instructions PO DAILY 04/05/21 04/06/23 release (Cymbalta) prochlorperazine maleate 10 mg 10 mg PO PRN PRN Nausea 10/13/22 04/06/23 tablet quetiapine 50 mg tablet 50 mg PO HS 10/13/22 04/06/23 buspirone 15 mg tablet 15 mg PO DAILY 04/06/23 04/06/23 omeprazole 40 mg capsule,delayed 40 mg PO DAILY 04/06/23 04/06/23 release quetiapine 25 mg tablet 25 mg PO HS 04/06/23 04/06/23 Allergies Allergy/AdvReac Type Severity Reaction Status Date / Time [id number] Antimigraine Allergy Severe passout Verified 04/06/23 07:59 Agents coconut Allergy Mild Hives Verified 04/06/23 07:59 COVID-19 vaccine, mRNA, Allergy Mild hives, Verified 04/06/23 07:59 [id number], L chest pain, SOB hydrocodone Allergy Mild Itching Verified 04/06/23 07:59 latex Allergy Mild Hives Verified 04/06/23 07:59 morphine Allergy Mild Itching Verified 04/06/23 07:59 pneumococcal vaccine Allergy Mild Other Verified 04/06/23 07:59 shrimp AdvReac Mild Hives Verified 04/06/23 07:59 Review of Systems Review of Systems: All systems reviewed & are unremarkable except as noted in HPI and below Constitutional: Constitutional: Reports no additional constitutional complaints Eyes: Eyes: Reports no additional eye complaints ENT: Reports system reviewed and no additional complaints, except as documented Cardiovascular: Cardiovascular: Reports no additional cardiovascular complaints Respiratory: Respiratory: Reports as per HPI, Reports chest congestion, Reports cough, Reports dyspnea and Reports wheezing Gastrointestinal: Gastrointestinal: Reports no additional gastrointestinal complaints Genitourinary: Genitourinary: Reports no additional female genitourinary complaints Musculoskeletal: Musculoskeletal: Reports no additional musculoskeletal complaints Integumentary/Breasts: Skin/Breast: Reports system reviewed and no additional complaints, except as docu Neurologic: Reports system reviewed and no additional complaints, except as documented Psychiatric: Psychiatric: Reports no additional psychiatric complaints Endocrine: Endocrine: Reports no additional endocrine complaints Hematologic/Lymphatic: Hematologic/Lymphatic: Reports no additional hematologic/lymphatic complaints Allergic/Immunologic: Allergic/Immunologic: Reports no additional allergic/immunologic complaints [facility] Past Medical History Medical History Anxiety Asthma Depression DVT (deep venous thrombosis) Increasing shortness of breath Migraines, 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
[2023-06-13] MEDS: IPRATROPIUM 0.5 MG/ALBUTEROL SULFATE 2.5 MG AMPUL.NEB 3 ML INHALATION (01:48)
[2023-06-13 01:49] VITALS: PULSE 93; RESP 18; O2SAT 95
[2023-06-13] MEDS: DOXYCYCLINE HYCLATE 100 MG TABLET PO (01:50)
[2023-06-13 01:58] VITALS: PULSE 85; RESP 20; O2SAT 99
[2023-06-13] MEDS: PROCHLORPERAZINE MALEATE 5 MG TABLET 10 MG PO (02:01)
[2023-06-13 02:10] VITALS: BP 118/80; PULSE 84; RESP 18; O2SAT 98
== END 2023-06-13 02:13 | disposition home or self-care (01) ==
PROVIDERS: Emergency Provider Family Medicine
DX: J45.909 Unspecified asthma, uncomplicated (principal); J06.9 Acute upper respiratory infection, unspecified; F17.290 Nicotine dependence, other tobacco product, uncomplicated
CPT/HCPCS: 94640; 96372; 99283; A9270; J1100

== ENCOUNTER 2023-08-09 20:52 | Emergency (ER) | payer OTHER, SELFPAY ==
--- NOTE | ~2023-08-09 | CT_ITS ---
Non-contrast CT scan of the Abdomen and Pelvis Clinical indication: Abdominal pain Technique: 2.5 mm axial scans were obtained through the abdomen and pelvis without intravenous or or al contrast. Dose reduction technique was used on this scan by utilizing automated exposure control a nd iterative reconstruction technique. The dose-length product (DLP) was 1435.20 mGy-cm. COMPARISON: 04/06/2023 Findings: Images through the lung bases reveal no abnormalities. Stable 4 mm nonobstructing left renal stone versus cortical calcification. No other renal calcificati ons identified. No hydronephrosis. No ureteral stones. The liver, spleen, pancreas, and adrenals appear normal. Cholecystectomy clips are present. There is no aortic aneurysm. Stent present within the IVC extending distally into the right common iliac vein. There is no evidence of bowel obstruction. Images through the pelvis were performed. There is small amount of pelvic ascites. Urinary bladder un remarkable. No adnexal mass seen. Impression: No acute abnormality. Stable 4 mm nonobstructing left renal stone versus cortical calcification. Stable stent in the IVC/right common iliac vein, as above. Reviewed, dictated and finalized at location . Impression: No acute abnormality. Stable 4 mm nonobstructing left renal stone versus cortical calcification. Stable stent in the IVC/right common iliac vein, as above.
[2023-08-09 22:13] VITALS: BP 158/104; PULSE 115; RESP 18; TEMP 37; O2SAT 98
--- NOTE | 2023-08-09 22:22 | ED.ABDPAIN ---
HPI - Abdominal Pain General Chief Complaint: Abdominal Pain Stated Complaint: UTI since 07/09;chronic pancreatitis Time Seen by Provider: 08/09/23 22:09 Source: patient Mode of arrival: ambulatory Limitations: no limitations History of Present Illness HPI narrative: patient is a 33-year-old female with lower abdominal pain and dysuria and recurrent UTIs. This is her 2nd UTI in the past month. She has been dealing with this for a month. She is on her 2nd antibiotic which was started this week. MD elicited complaint: abdominal pain Pertinent past history: past UTI Onset (ago): month(s) (1) Pain Consistency: constant Location: suprapubic Severity: moderate Pain scale (0-10): 5 Quality: fullness and sharp Radiation: none Exacerbating factors: nothing Relieving factors: nothing Associated symptoms: dysuria Treatments prior to arrival: other ( Antibiotics) Related Data Home Medications Medication Instructions Recorded Confirmed duloxetine 60 mg capsule,delayed See Rx Instructions PO DAILY 04/05/21 08/09/23 release (Cymbalta) prochlorperazine maleate 10 mg 10 mg PO PRN PRN Nausea 10/13/22 08/09/23 tablet quetiapine 50 mg tablet 50 mg PO HS 10/13/22 08/09/23 omeprazole 40 mg capsule,delayed 40 mg PO DAILY 04/06/23 08/09/23 release quetiapine 25 mg tablet 25 mg PO HS 04/06/23 08/09/23 cefuroxime axetil 500 mg tablet 500 mg PO BID 08/09/23 08/09/23 clonazepam 0.5 mg tablet 0.5 mg PO BID 08/09/23 08/09/23 tamsulosin 0.4 mg capsule 0.4 mg PO DAILY 08/09/23 08/09/23 verapamil 80 mg tablet 80 mg PO DAILY 08/09/23 08/09/23 Allergies Allergy/AdvReac Type Severity Reaction Status Date / Time [id number] Antimigraine Allergy Severe passout Verified 04/06/23 07:59 Agents coconut Allergy Mild Hives Verified 04/06/23 07:59 COVID-19 vaccine, mRNA, Allergy Mild hives, Verified 04/06/23 07:59 [id number], L chest pain, SOB hydrocodone Allergy Mild Itching Verified 04/06/23 07:59 latex Allergy Mild Hives Verified 04/06/23 07:59 morphine Allergy Mild Itching Verified 04/06/23 07:59 pneumococcal vaccine Allergy Mild Other Verified 04/06/23 07:59 shrimp AdvReac Mild Hives Verified 04/06/23 07:59 Review of Systems Review of Systems: All systems reviewed & are unremarkable except as noted in HPI and below Constitutional: Constitutional: Reports no additional constitutional complaints Eyes: Eyes: Reports no additional eye complaints ENT: Reports system reviewed and no additional complaints, except as documented Cardiovascular: Cardiovascular: Reports no additional cardiovascular complaints Respiratory: Respiratory: Reports no additional respiratory complaints Gastrointestinal: Gastrointestinal: Reports no additional gastrointestinal complaints Genitourinary: Genitourinary: Reports no additional female genitourinary complaints Musculoskeletal: Musculoskeletal: Reports no additional musculoskeletal complaints Integumentary/Breasts: Skin/Breast: Reports system reviewed and no additional complaints, except as docu Neurologic: Reports system reviewed and no additional complaints, except as documented Psychiatric: Psychiatric: Reports no additional psychiatric complaints Endocrine: Endocrine: Reports no additional endocrine complaints Hematologic/Lymphatic: Hematologic/Lymphatic: Reports no additional hematologic/lymphatic complaints Allergic/Immunologic: Allergic/Immunologic: Reports no additional allergic/immunologic complaints [facility] Past Medical History Medical History Anxiety Asthma Depression DVT (deep venous thrombosis) Increasing shortness of breath Migraines, 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
[2023-08-09 22:35] LABS: Basophils Absolute Auto 0.06 K/mm3 (0.00-0.10); Basophils Percent Auto 0.7 % (0.0-1.0); Eosinophils Absolute Auto 0.24 K/mm3 (0.02-0.50); Eosinophils Percent Auto 2.9 % (1.0-6.0); Hematocrit 42.6 % (35.0-49.0); Hemoglobin 13.4 g/dL (12.0-15.0); Immature Granulocyte Absolute 0.02 K/mm3 (0.00-0.00); Immature Granulocyte Percent A 0.2 % (0.0-0.0); Lymphocytes Absolute Auto 3.24 K/mm3 (1.10-4.50); Lymphocytes Percent Auto 39.6 % (18.0-42.0); Mean Corpuscular HGB Conc 31.5 g/dL (32-36); Mean Corpuscular Hemoglobin 27.5 pg (27.0-31.0); Mean Corpuscular Volume 87.3 fL (78.0-102.0); Mean Platelet Volume 10.6 fl (9.2-11.8); Monocytes Absolute Auto 0.46 K/mm3 (0.10-0.90); Monocytes Percent Auto 5.6 % (2.0-11.0); Neutrophils Absolute Auto 4.17 K/mm3 (1.70-7.20); Platelet Count Result 254 K/mm3 (150-420); Red Blood Count 4.88 M/mm3 (4.20-5.40); Red Cell Distribution Width 13.1 % (11.6-14.4); White Blood Count 8.2 K/mm3 (4.8-10.8)
[2023-08-09 22:37] LABS: Appearance Urine Clear (Clear); Bilirubin Urine 1+ (Negative); Blood Urine Negative (Negative); Glucose Urine UA Trace (Negative); Ketones Urine Trace (Negative); Leukocyte Esterase Ur Negative LEU/UL (Negative); Nitrate Urine Positive (Negative); Protein Urine 1+ (Negative); Specific Grav Ur >= 1.030 (1.010-1.020); pH Urine 5.5 (5.0-8.0)
[2023-08-09 22:44] LABS: Add Urine Microscopic? YES; Color Urine Dark Orange (Yellow); RBC Urine 0-2 /hpf (0-2); WBC Urine 0-3 /hpf (0-3)
[2023-08-09 22:45] LABS: Bacteria Urine 1+ /hpf; Calcium Oxalate Crystals Urine Present /hpf; Mucus Urine Few /lpf; Pregnancy On Board Control Positive; Squamous Epithelial Cell Urine Few /hpf (Few); Urine Pregnancy Test Negative
[2023-08-09 23:00] LABS: Alanine Aminotransferase 52 U/L (14-59); Albumin Level 3.5 g/dL (3.4-5.0); Alkaline Phosphatase 60 U/L (46-116); Anion Gap 10 mmol/L (4-12); Aspartate Amino Transferase 24 U/L (15-37); Bilirubin,Total 0.3 mg/dL (0.00-1.00); Blood Urea Nitrogen 7 mg/dL (7-18); Calcium 8.7 mg/dL (8.5-10.1); Carbon Dioxide 27 mmol/L (21-32); Chloride 104 mmol/L (98-108); Estimated CRCL calculation 112 ml/min; Estimated Glomerular Filt Rate > 60; Glucose 113 mg/dL (70-99); Lipase 70 U/L (16-77); Osmolality Calculated 291 mOsm/kg (285-295); Potassium 3.8 mmol/L (3.5-5.1); Sodium 141 mmol/L (136-145); Total Protein 6.6 g/dL (6.4-8.2)
[2023-08-09] MEDS: KETOROLAC (*BKC) 60 MG/2 ML VIAL IM (23:03)
[2023-08-09 23:45] VITALS: BP 145/89; PULSE 85; RESP 18; O2SAT 96
--- NOTE | 2023-08-10 00:30 | PC.NURSE ---
Pt calling and wanting to know if she will get an IV and stronger pain meds. CT scan is back and pt resting on side c friend in room. Explained to pt that will be in to talk c her in a bit about her tests and POC. VSS at this time.
--- NOTE | 2023-08-10 00:42 | PC.NURSE ---
Pt walked out s d/c instructions and stated she understood her POC and was going to her hospital where her Dr is located to get IV fluids and pain medication. Pt states she is trying to work c her Dr to get into a urologist for f/u c her chronic UTI issues.
[2023-08-10 00:44] VITALS: BP 140/81; PULSE 85; RESP 18; TEMP 36.6; O2SAT 98
--- NOTE | 2023-08-12 13:17 | PC.NURSE ---
FINAL URINE CULTURE RESULTS: NO GROWTH. NO ACTION NEEDED.
== END 2023-08-10 00:44 | disposition home or self-care (01) ==
PROVIDERS: Emergency Provider Emergency Medicine
DX: N30.01 Acute cystitis with hematuria (principal); F41.8 Other specified anxiety disorders; Z86.718 Personal history of other venous thrombosis and embolism; Z87.891 Personal history of nicotine dependence
CPT/HCPCS: 36415; 74176; 80053; 81001; 81025; 83690; 85025; 87086; 96372; 99284; J1885